=== PATIENT | female | born 1990 | race Two or more races ===

== ENCOUNTER 2019-12-08 06:44 | Emergency (ER) | payer MEDICAID, OTHER ==
[~2019-12-08] VITALS: Ht 167.6 cm; Wt 82.0 kg
[2019-12-08 06:56] VITALS: BP 105/72
[2019-12-08] MEDS ORDERED: ACETAMINOPHEN 325MG TABLET PO ONE (07:45)
== END 2019-12-08 08:13 | disposition home or self-care (01) ==
LOC: ER 06:44
DX: M25.521 Pain in right elbow (principal); F15.10 Other stimulant abuse, uncomplicated
CPT/HCPCS: 73070; 99283